=== PATIENT | female | born 1990 | race African-American/Black ===

== ENCOUNTER 2022-10-21 21:13 | Emergency (ER) | payer MEDICAID, OTHER ==
[~2022-10-21] VITALS: Ht 172.7 cm; Wt 82.0 kg
[2022-10-21] MEDS ORDERED: IBUPROFEN 400MG TABLET PO ONE (23:00)
[2022-10-21 23:49] LABS: BASOPHILS % 0.4 % (0.0-2.0); EOSINOPHILS % 1.2 % (0.0-5.0); HEMATOCRIT. 39.6 % (36.0-48.0); HEMOGLOBIN. 13.6 g/dL (12.0-16.0); MEAN CORPUSCULAR HEMOGLOBIN 27.8 pg (28.0-32.0); MEAN CORPUSCULAR VOLUME 81.3 fL (81.0-99.0); MONOCYTES % 8.1 % (2.0-8.0); NEUTROPHILS % 68.3 % (40.0-76.0); PLATELET 268 x1000/uL (130-400); RED BLOOD CELL COUNT 4.87 mill/uL (4.2-5.4); RED CELL DISTRIBUTION WIDTH 13.4 % (11.6-14.6)
[2022-10-21 23:54] LABS: CHLORIDE 107 mEq/L (98-107)
[2022-10-22 00:11] LABS: HCG SCREEN POSITIVE
[2022-10-22 00:46] LABS: D-DIMER 0.35 mg/L FEU (<0.50); INR 0.9; PARTIAL THROMBOPLASTIN TIME 31.4 sec (23.4-31.0); PROTHROMBIN TIME 10.1 sec (9.6-11.0)
[2022-10-22 01:39] VITALS: BP 123/94
[2022-10-22] MEDS ORDERED: TOPUD MT (01:56)
== END 2022-10-22 02:06 | disposition home or self-care (01) ==
LOC: ER 21:13
DX: O99.511 Diseases of the respiratory system complicating pregnancy, first trimester (principal); R07.2 Precordial pain; R05.9 Cough, unspecified; J45.909 Unspecified asthma, uncomplicated; Z20.822 Contact with and (suspected) exposure to COVID-19; Z3A.01 Less than 8 weeks gestation of pregnancy
CPT/HCPCS: 36415; 71045; 80053; 81025; 83880; 84443; 84484; 84702; 84703; 85025; 85379; 85610; 85730; 87426; 93005; 99285; C9803